=== PATIENT | male | born 1970 | race Caucasian/White ===

== ENCOUNTER 2018-09-07 21:55 | Emergency (ER) | payer OTHER ==
[~2018-09-07] VITALS: Ht 182.9 cm; Wt 81.6 kg
[~2018-09-07 21:55] MED LIST: ASPIRIN EC81 M1 PO; AUGMENTIN 875-1 EACH PO; NORCO 5-325 TA1 EACH PO; ZANTAC 150MG T150 M1 PO
[2018-09-07] MEDS ORDERED: PAXIL10 MG PO (22:02)
[2018-09-07] MEDS ORDERED: QUETIAPINE FUM100 MG PO (22:02)
[2018-09-07 22:20] LABS: HEMATOCRIT 42.9 % (42.0-52.0); HEMOGLOBIN 14.4 gm/dL (14.0-18.0); MCHC 33.5 g/dL (28.0-37.0); MCV 86.5 fL (80.0-100.0); MPV 8.4 fl. (7.2-11.1); NUCLEATED RBCS 0 /100WBC; PLATELET COUNT* 220 thou/uL (150-400); RBC 4.95 mil/uL (4.50-6.00); RDW-CV 14.1 % (10.5-14.5); WBC 16.1 thou/uL (4.0-11.0)
[2018-09-07 22:28] LABS: CALCIUM 9.6 mg/dL (8.5-10.1); CREATININE 1.3 mg/dL (0.6-1.3); POTASSIUM 4.8 mmol/L (3.5-5.1)
[2018-09-07 22:33] LABS: ALBUMIN 4.6 g/dL (3.4-5.0); TOTAL BILIRUBIN 0.4 mg/dL (<0.1-1.0); TOTAL PROTEIN 8.2 g/dL (6.4-8.2)
[2018-09-07 22:34] LABS: URINE BILIRUBIN NEGATIVE (Negative); URINE BLOOD NEGATIVE (Negative); URINE CLARITY CLEAR; URINE COLOR YELLOW; URINE GLUCOSE-RANDOM NEGATIVE (Negative); URINE KETONES 2+ (Negative); URINE LEUKOCYTES-REFLEX NEGATIVE (Negative); URINE NITRITE-REFLEX NEGATIVE (Negative); URINE PROTEIN 1+ (Negative); URINE SPECIFIC GRAVITY >= 1.030 (1.005-1.030); URINE UROBILINOGEN 0.2 E.U./dl (0.2-1.0)
[2018-09-07 22:48] LABS: ABSOLUTE LYMPHOCYTES 2.1 thou/uL (0.8-5.3); ABSOLUTE MONOCYTES 0.8 thou/uL (0.0-1.2); ABSOLUTE NEUTROPHILS 13.2 thou/uL (1.6-8.1)
[2018-09-07 22:49] LABS: PLATELET ESTIMATE ADEQUATE
[2018-09-07] MEDS ORDERED: PROTONIX 20 MG20 M1 PO (23:47)
[2018-09-08] VITALS: BP 160/97
== END 2018-09-08 00:02 | disposition home or self-care (01) ==
LOC: M.ERS 21:55
PROVIDERS: Nurse Practitioner Family
DX: R10.13 Epigastric pain (principal); F31.9 Bipolar disorder, unspecified; F20.9 Schizophrenia, unspecified

== ENCOUNTER → 2018-10-06 | Emergency (ER) | payer OTHER ==
[~2018-10-06] VITALS: Ht 180.3 cm; Wt 81.2 kg
[~2018-10-06] MED LIST changes: +PAXIL10 MG PO; +PROTONIX 20 MG20 M1 PO; +QUETIAPINE FUM100 MG PO
[2018-10-06 23:30] VITALS: BP 137/86
[2018-10-06 23:48] LABS: HEMATOCRIT 39.4 % (42.0-52.0); HEMOGLOBIN 13.7 gm/dL (14.0-18.0); MCH 29.6 pg (26.0-34.0); MCHC 34.7 g/dL (28.0-37.0); MCV 85.3 fL (80.0-100.0); MPV 8.1 fl. (7.2-11.1); NUCLEATED RBCS 0 /100WBC; PLATELET COUNT* 209 thou/uL (150-400); RBC 4.62 mil/uL (4.50-6.00); RDW-CV 14.1 % (10.5-14.5); WBC 13.2 thou/uL (4.0-11.0)
[2018-10-07 00:02] LABS: ALBUMIN 4.5 g/dL (3.4-5.0); CALCIUM 9.9 mg/dL (8.5-10.1); CREATININE 1.2 mg/dL (0.6-1.3); POTASSIUM 4.1 mmol/L (3.5-5.1); TOTAL BILIRUBIN 0.4 mg/dL (<0.1-1.0); TOTAL PROTEIN 7.9 g/dL (6.4-8.2)
[2018-10-07 00:46] LABS: AMP/METHAMP Negative (Negative); BARBITURATES Negative (Negative); BENZODIAZEPINES Negative (Negative); COCAINE Negative (Negative); METHADONE Negative (Negative); OPIATES Negative (Negative); PCP Negative (Negative); THC POSITIVE (Negative)
[2018-10-07 00:56] LABS: ABSOLUTE EOSINOPHILS 0.1 thou/uL (0.0-0.7); ABSOLUTE LYMPHOCYTES 0.8 thou/uL (0.8-5.3); ABSOLUTE MONOCYTES 0.3 thou/uL (0.0-1.2); PLATELET ESTIMATE ADEQUATE
== END ==
LOC: M.ERS 23:28
PROVIDERS: Emergency Medicine
DX: K29.70 Gastritis, unspecified, without bleeding (principal); F31.9 Bipolar disorder, unspecified; F20.9 Schizophrenia, unspecified; Z88.8 Allergy status to other drugs, medicaments and biological substances

== ENCOUNTER 2019-01-01 12:30 | Emergency (ER) | payer OTHER ==
[~2019-01-01] VITALS: Ht 180.3 cm; Wt 81.7 kg
[2019-01-01 13:21] LABS: HEMOGLOBIN 14.8 gm/dL (14.0-18.0); MCH 29.6 pg (26.0-34.0); MCHC 34.4 g/dL (28.0-37.0); MCV 85.9 fL (80.0-100.0); MPV 8.5 fl. (7.2-11.1); NUCLEATED RBCS 0 /100WBC; PLATELET COUNT* 232 thou/uL (150-400); RBC 5.01 mil/uL (4.50-6.00); RDW-CV 14.5 % (10.5-14.5); WBC 19.6 thou/uL (4.0-11.0)
[2019-01-01 13:28] LABS: URINE BILIRUBIN NEGATIVE (Negative); URINE BLOOD TRACE (Negative); URINE CLARITY CLEAR; URINE COLOR YELLOW; URINE GLUCOSE-RANDOM NEGATIVE (Negative); URINE KETONES 2+ (Negative); URINE LEUKOCYTES-REFLEX NEGATIVE (Negative); URINE NITRITE-REFLEX NEGATIVE (Negative); URINE PROTEIN 1+ (Negative); URINE SPECIFIC GRAVITY >= 1.030 (1.005-1.030); URINE UROBILINOGEN 0.2 E.U./dl (0.2-1.0)
[2019-01-01 13:36] LABS: AMP/METHAMP Negative (Negative); BARBITURATES Negative (Negative); BENZODIAZEPINES Negative (Negative); COCAINE Negative (Negative); METHADONE Negative (Negative); OPIATES Negative (Negative); PCP Negative (Negative); THC POSITIVE (Negative)
[2019-01-01 13:46] LABS: CALCIUM 9.7 mg/dL (8.5-10.1); CREATININE 1.3 mg/dL (0.6-1.3)
[2019-01-01 13:49] LABS: ABSOLUTE NEUTROPHILS 18.6 thou/uL (1.6-8.1); PLATELET ESTIMATE ADEQUATE
[2019-01-01 13:51] LABS: ALBUMIN 4.6 g/dL (3.4-5.0); TOTAL BILIRUBIN 0.4 mg/dL (<0.1-1.0); TOTAL PROTEIN 8.2 g/dL (6.4-8.2)
[2019-01-01] MEDS ORDERED: OMEPRAZOLE 20 M20 M1 PO (16:01)
[2019-01-01] MEDS ORDERED: CARAFATE 1 GM TA1 GM PO (16:01)
[2019-01-01 16:12] VITALS: BP 118/62
== END 2019-01-01 16:14 | disposition home or self-care (01) ==
LOC: M.ERS 12:30
PROVIDERS: Personal Emergency Response Attendant
DX: K29.00 Acute gastritis without bleeding (principal); F31.9 Bipolar disorder, unspecified; F20.9 Schizophrenia, unspecified; Z79.899 Other long term (current) drug therapy

== ENCOUNTER 2019-07-29 01:00 | Emergency (ER) | payer OTHER ==
[~2019-07-29] VITALS: Ht 180.3 cm; Wt 86.2 kg
[~2019-07-29 01:00] MED LIST changes: +CARAFATE 1 GM TA1 GM PO; +OMEPRAZOLE 20 M20 M1 PO
[2019-07-29 01:30] LABS: HEMATOCRIT 43.4 % (42.0-52.0); HEMOGLOBIN 15.4 gm/dL (14.0-18.0); MCH 30.4 pg (26.0-34.0); MCHC 35.5 g/dL (28.0-37.0); MCV 85.5 fL (80.0-100.0); MPV 8.1 fl. (7.2-11.1); NUCLEATED RBCS 0 /100WBC; PLATELET COUNT* 265 thou/uL (150-400); RBC 5.07 mil/uL (4.50-6.00); RDW-CV 13.9 % (10.5-14.5); WBC 15.6 thou/uL (4.0-11.0)
[2019-07-29 01:39] LABS: CALCIUM 10.3 mg/dL (8.5-10.1); CREATININE 2.3 mg/dL (0.6-1.3); POTASSIUM 3.8 mmol/L (3.5-5.1)
[2019-07-29 01:44] LABS: ALBUMIN 4.6 g/dL (3.4-5.0); TOTAL BILIRUBIN 0.7 mg/dL (<0.1-1.0); TOTAL PROTEIN 9.3 g/dL (6.4-8.2)
[2019-07-29 02:58] LABS: ABSOLUTE LYMPHOCYTES 1.2 thou/uL (0.8-5.3); ABSOLUTE MONOCYTES 0.5 thou/uL (0.0-1.2); ABSOLUTE NEUTROPHILS 13.9 thou/uL (1.6-8.1); PLATELET ESTIMATE ADEQUATE
[2019-07-29 02:59] LABS: CLUMPED PLTS OCCASIONAL; TOXIC GRANULATION 1+
[2019-07-29 03:45] VITALS: BP 105/101
--- NOTE | 2019-07-29 08:50 | EKG ---
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 1970 Requested By: Seng Watson Order Number: [id number] MD: Mannie Arceo Measurements Intervals Waves Rate: 83 P: 45 DE: 134 QRS: 82 QRSD: 87 T: 57 QT: 373 QTc: 439 Interpretive Statements Sinus rhythm ST elev, probable normal early repol pattern No previous ECG available for comparison Electronically Signed On 07-29-2019 8:48:06 CDT by Mannie Arceo [email or web address] <ELECTRONICALLY SIGNED> By: Mannie Arceo MD, [facility] 07/29/19 0848 Mannie Arceo MD, [facility] /EPI
== END 2019-07-29 03:51 | disposition left against medical advice (07) ==
LOC: M.ERS 01:00
PROVIDERS: Emergency Medicine Emergency Medical Services
DX: N19 Unspecified kidney failure (principal); R11.2 Nausea with vomiting, unspecified

== ENCOUNTER 2019-08-02 12:23 | Emergency (ER) | payer OTHER ==
[~2019-08-02] VITALS: Ht 180.3 cm; Wt 81.7 kg
--- NOTE | ~2019-08-02 | EMS ---
[facility] [address] [address] EMS Patient Care Report Name: KASSIDY BEACH [id number] Admission: 08/02/19 Attend Phys: Discharge: 08/02/19 Date of : 70 Report #: [id number] THIS REPORT FOR: //name// Report Transmitted: 08/02/2019 15:54 EMS Care Summary [employer] [facility] Incident [id number] @ 08/02/2019 11:48 Incident Location [address] [place] [address] Patient KASSIDY BEACH Male, 49 Years 1970 Patient Address [address] [place] [address] Patient History Kidney/Renal Failure,Gastric Ulcer, Patient Allergies No known allergies, Patient Medications Paxil, Seroquel, Chief Complaint abdominal pain Disposition Transported No Lights/[place] Reason Sick Person Transported To [facility] Narrative Dispatched for 49y/o male with abdominal pain. Pt. states that he has ulcers and this is the "same pain as always". Pt. was seen at [place] last Friday for the same complaint and left AMA. Pt. stated that he used his finger to induce vomiting, then was seen today at PCP and [place] [address] EMS Patient Care Report Name: KASSIDY BEACH Room: [facility]#: [id number] Admission: 08/02/19 Attend Phys: Discharge: 08/02/19 Date of : 70 Report #: [id number] but PCP denied pt. any drugs or prescription. PCP told pt. he could go to an ED if he wanted. PT. then rode in a car home to call 911. When asked pt. stated that he wanted to be transported by ambulance because "the A/C is better in the ambulance than the car, and I want to get in faster, if I walk in they'll make me wait". Pt. has numerous puncture rosario on both arms. Pt. stated "I just want something for pain". Pt. was transported to [place] for emergency services. Initial Vitals @12:15P: 100,R: 20,BP: 130/90,SpO2: 98, @12:00P: 112,R: 20,BP: 135/97,Pain: 10/10,GCS: 15,SpO2: 97,Revised Trauma: 12, Assessments @11:55MENTAL:Person Oriented,Time Oriented,Event Oriented,Place Oriented,SKIN:No Abnormalities,HEENT:Head/Face: No Abnormalities,Eyes: No Abnormalities,Neck/Airway: No Abnormalities,LUNG SOUNDS:General: Nausea,General: Vomiting,Left Upper: Other,Left Lower: Other,Right Upper: No Abnormalities,Right Lower: No Abnormalities,ABDOMEN:General: Nausea,General: Vomiting,Left Upper: Other,Left Lower: Other,Right Upper: No Abnormalities,Right Lower: No Abnormalities,PELVIS//GI:No Abnormalities,EXTREMITIES:Left Arm: Other,Right Arm: Other,Left Leg: No Abnormalities,Right Leg: No Abnormalities,PULSE:NEURO:No Abnormalities, Impression Abdominal Pain Timeline 11:46,Call Received 11:48,Dispatched 11:48,En Route 11:50,Initial Responder On Scene 11:50,On Scene 11:52,At Patient 11:58,Depart Scene 12:00,BP: 135/97 M,PULSE: 112,RR: 20 R,SPO2: 97 Ox,ETCO2: ,BG: ,PAIN: 10,GCS: 15, 12:15,BP: 130/90 M,PULSE: 100,RR: 20 R,SPO2: 98 Ox,ETCO2: ,BG: ,PAIN: ,GCS: , 12:19,At Destination 12:23,Transfer Patient 12:49,Call Closed 12:49,In District Disclaimer v1.1 Copyright 2020 [employer] This EMS Care Summary contains data elements from the applicable legal record (which may be displayed differently). It is [place] [address] EMS Patient Care Report Name: KASSIDY BEACH Room: [facility] Robbins#: [id number] Admission: 08/02/19 Attend Phys: Discharge: 08/02/19 Date of : 70 Report #: [id number] information for the following purposes: continuity of care, clinical quality, and state data reporting. The complete legal record is available to ED staff and administrators of the receiving hospital in [facility]'s Patient Tracker. All data is provided "as is."
[2019-08-02 12:40] VITALS: BP 141/103
== END 2019-08-02 12:40 | disposition home or self-care (01) ==
LOC: M.ERS 12:23
DX: G89.29 Other chronic pain (principal); R10.13 Epigastric pain; F12.10 Cannabis abuse, uncomplicated; F31.9 Bipolar disorder, unspecified; F20.9 Schizophrenia, unspecified; R11.2 Nausea with vomiting, unspecified; Z79.899 Other long term (current) drug therapy